=== PATIENT | female | born 1995 | race Caucasian/White ===

== ENCOUNTER 2021-11-12 10:50 | Outpatient (CLI) | payer OTHER, SELFPAY ==
[2021-11-12 14:23] LABS: Cholesterol* 201 mg/dL (90-199); HDL Cholesterol* 66 mg/dL (>=50); LDL Cholesterol Calculated 121 mg/dL (<100); Triglycerides* 72 mg/dL (40-149)
[2021-11-13 15:10] LABS: Sex Hormone Binding Globulin 150 nmol/L (25-122)
[2021-11-13 15:56] LABS: Prolactin 8.9 ng/mL (2.8-29.2)
== END 2021-11-12 10:51 | disposition home or self-care (01) ==
LOC: LKVREF 10:51
PROVIDERS: PCP Physician Assistant Medical; Visit Provider Physician Assistant Medical
DX: Z00.00 Encounter for general adult medical examination without abnormal findings (principal); N91.2 Amenorrhea, unspecified; Z13.6 Encounter for screening for cardiovascular disorders
CPT/HCPCS: 80061; 84146; 84270

== ENCOUNTER 2023-01-08 09:38 | Outpatient (CLI) | payer OTHER, SELFPAY | END 2023-01-08 09:39 | disposition home or self-care (01) | PROVIDERS: PCP Physician Assistant Medical; Visit Provider Physician Assistant Medical | DX: Z00.00 Encounter for general adult medical examination without abnormal findings (principal); Z13.0 Encounter for screening for diseases of the blood and blood-forming organs and certain disorders involving the immune mechanism; Z13.29 Encounter for screening for other suspected endocrine disorder; Z13.1 Encounter for screening for diabetes mellitus; Z13.6 Encounter for screening for cardiovascular disorders | CPT/HCPCS: 80053; 80061; 84146; 84443; 85651 ==

== ENCOUNTER 2023-10-26 17:20 | Outpatient (CLI) | payer OTHER, SELFPAY | END 2023-10-26 17:21 | disposition home or self-care (01) | LOC: NFLDREF 10-27 08:22 | PROVIDERS: PCP Physician Assistant Medical; Referring Provider Physician Assistant Medical; Visit Provider Physician Assistant | DX: R30.0 Dysuria (principal) | CPT/HCPCS: 87086 ==

== ENCOUNTER 2024-03-21 08:10 | Outpatient (CLI) | payer OTHER, SELFPAY ==
[2024-03-21 15:18] LABS: Chlamydia DNA Amplified* NOT DETECTED (No Detected); GC DNA Amplified* NOT DETECTED (No Detected)
[2024-03-23 13:00] LABS: HPV Source Cervix; HPV, High Risk by TMA Not Detected
== END 2024-03-21 08:11 | disposition home or self-care (01) ==
PROVIDERS: PCP Physician Assistant Medical; Visit Provider Physician Assistant Medical
DX: R79.89 Other specified abnormal findings of blood chemistry (principal); Z13.220 Encounter for screening for lipoid disorders; Z13.1 Encounter for screening for diabetes mellitus; Z13.29 Encounter for screening for other suspected endocrine disorder; Z11.3 Encounter for screening for infections with a predominantly sexual mode of transmission; Z11.51 Encounter for screening for human papillomavirus (HPV); Z12.4 Encounter for screening for malignant neoplasm of cervix
CPT/HCPCS: 80061; 82947; 84146; 84443; 87491; 87591; 87624; 87625; 88141; 88142